=== PATIENT | male | born 1955 | race Caucasian/White ===

== ENCOUNTER 2022-02-26 07:29 | Outpatient (REF) | payer MEDICARE, MEDICAID, SELFPAY ==
[2022-02-26 07:58] LABS: MANUAL DIFF FLAG NO
[2022-02-26 08:13] LABS: Basophils Percent Auto 0.3 % (0-2); Eosinophils Absolute Auto 0.1 X10*3/uL (0.0-0.4); Eosinophils Percent Auto 1.5 % (0-4); Hematocrit 45.2 % (42.0-52.0); Hemoglobin 14.3 g/dl (14.0-18.0); Imm Gran Abs Auto 0.06 X10*3/uL (0.00-0.03); Imm Gran Pct Auto 0.7 % (0.0-0.4); Lymphocytes Absolute Auto 2.7 X10*3/uL (1.2-4.9); Mean Corpuscular HGB Conc 31.6 g/dl (31.0-36.0); Mean Corpuscular Hemoglobin 31.5 pg (27.0-33.0); Mean Corpuscular Volume 99.6 fL (80.0-98.0); Mean Platelet Volume 12.3 fL (9.4-12.4); Monocytes Absolute Auto 0.8 X10*3/uL (0.1-1.2); Monocytes Percent Auto 9.1 % (2-11); Neutrophils Percent Auto 57.4 % (45-73); Platelet Count 153 X10*3/uL (160-400); Red Blood Count 4.54 X10*6/uL (4.60-5.80); Red Cell Distribution Width 13.7 % (11.0-16.0); White Blood Count 8.7 X10*3/uL (4.8-10.8)
[2022-02-26 08:27] LABS: Estimated Average Glucose 186 mg/dL; Hemoglobin A1c % 8.1 %
[2022-02-26 08:39] LABS: Alanine Aminotransferase 34 U/L (0-40); Albumin Level 3.9 g/dL (3.5-5.0); Alkaline Phosphatase 64 U/L (39-117); Anion Gap 14 (12-20); Aspartate Amino Transferase 18 U/L (5-37); Bilirubin Total 0.3 mg/dL (0.0-1.0); Blood Urea Nitrogen 13 mg/dL (9-16); Calcium 9.1 mg/dL (8.4-10.2); Carbon Dioxide 28 mmol/L (22-29); Chloride 101 mmol/L (96-108); Cholesterol 172 mg/dL; Estimated Glomerular Filt Rate > 60; Glucose Fasting 192 mg/dL (60-99); HDL Cholesterol 30 mg/dL; LDL Cholesterol Calculated 115 mg/dl; Potassium 4.5 mmol/L (3.3-5.1); Sodium 138 mmol/L (135-145); Total Protein 7.1 g/dL (6.5-8.0); Triglycerides 137 mg/dL
[2022-02-26 09:01] LABS: Thyroid Stimulating Hormone 3.09 uIU/mL (0.32-4.0)
[2022-02-26 10:12] LABS: Creatinine Urine 82.82 mg/dL; Microalbum/Creatinine Ratio Ur 31.3 ug/mg cr
== END 2022-02-26 07:30 | disposition home or self-care (01) ==
LOC: HO.LAB 07:29
PROVIDERS: PCP Internal Medicine; Visit Provider Internal Medicine
DX: Z00.00 Encounter for general adult medical examination without abnormal findings (principal); E03.9 Hypothyroidism, unspecified; E11.9 Type 2 diabetes mellitus without complications
CPT/HCPCS: 36415; 80053; 80061; 82043; 83036; 84443; 85025

== ENCOUNTER 2024-01-01 11:36 | Outpatient (AMB) | payer MEDICARE, MEDICAID, SELFPAY ==
--- NOTE | 2024-01-01 11:36 | A.OFFPC_ITS ---
Vital Signs 01/01/24 11:37 Height 5 ft 6 in Weight 296 lb BMI 47.8 BP 136/76 Blood Pressure Location Lt brachial Position Sitting Pulse 92 Pulse Source Pulse Oximeter Pulse Oximetry (%) 95 Oxygen Delivery Method Room Air Intake Visit Reasons: medication follow up Intake Note: Patient is here to follow up on medication follow up Information Systems Security Specialist Required: No Allergies No Known Allergies [No Known Allergies*] Allergy (Verified 01/01/24 11:37) Medication List - Last Reconciled 01/04/24 by Chencho Cole MD aspirin (Adult Low Dose Aspirin) 81 mg PO DAILY blood sugar diagnostic use to test blood sugars three times a day blood sugar diagnostic (MultistatTouch Ultra Test strips) Test 3 times a day blood-glucose meter (Picuriouch Ultra2 Meter kit) test blood sugar three times a day diclofenac sodium 75 mg PO BID dicyclomine 20 mg PO QID 30 days fluoxetine 40 mg PO DAILY furosemide 20 mg PO DAILY glipizide ER 5 mg PO BID insulin glargine (Lantus U-100 Insulin) 90 units (0.9 mL) subcut .at bedtime insulin syringe-needle U-100 (BD Insulin Syringe Ultra-Fine) As directed lancets (Picuriouch Delica Plus Lancet) test three time a day lisinopril 10 mg PO DAILY metformin 1,000 mg PO BID pioglitazone 30 mg PO DAILY simvastatin 40 mg PO DAILY Ventolin HFA 90 mcg/actuation (albuterol sulfate) 2 puffs PO Q6H PRN NS Tobacco use date assessed: 01/01/24 Fall risk assessment: No Falls in past year Last assessed Fall Risk: 01/01/24 Dental Screening Dental Screen Date: 01/01/24 HPI medication follow up HPI Details DM HTN and hyperlip; compliant with meds; feels well [facility] Medical History (Updated 01/04/24 @ 09:01 by Chencho Cole MD) Morbid obesity Type 2 diabetes mellitus with morbid obesity Diabetes mellitus Surgical History History of nasal septoplasty Family History Father No problems noted. Mother Type 2 diabetes mellitus Maternal Grandmother Type 2 diabetes mellitus Social History Housing: Apartment Patient Tobacco Use Status: Current everyday Tobacco user Tobacco use type: Cigarette Cigarettes Per Day: 30 e-Cigarette/Vaping Use: Never Used Second Hand Smoke Exposure: No service: No Current occupational status: disabled Current occupational exposures/hazards: No Cognitive needs: No Hearing needs: No Vision needs: Yes Questionnaire PHQ-9 Over the last 2 weeks, how often have you been bothered by any of the following problems? 1. Little interest or pleasure in doing things: not at all 2. Feeling down, depressed, or hopeless: not at all 3. Trouble falling or staying asleep, or sleeping too much: not at all 4. Feeling tired or having little energy: not at all 5. Poor appetite or overeating: not at all 6. Feeling bad about yourself - or that you are a failure or have let yourself or your family down: not at all 7. Trouble concentrating on things, such as reading the newspaper or watching television: not at all 8. Moving or speaking so slowly that other people could have noticed. Or the opposite - being so fidgety or restless that you have been moving around a lot more than usual: not at all 9. Thoughts that you would be better off or of hurting yourself in some way: not at all Total score: 0 Depression Screening Interpretation: Negative Depression Screening Done: Yes 42117 - PHQ-9 Billing: Yes Source: Developed by Drs. Reji Carney, Chrystal Her, Steven Talamantes and colleagues, with an educational kj from [employer]. Thrive Questionnaire Date Thrive assessed: 01/01/24 I am a: Patient What is your living situation today?: I have a steady place to live Within the past 12 months, did the food you bought not last and you didn't have the money to get more?: Never true Within the past 12 months, did you worry whether your food would run out before you got money to buy more?: Never true Do you have trouble paying for medicines?: No Do you have trouble getting transportation to medical appointments?: No Do you have trouble paying your heating and electricity bill?: No Do you have trouble taking care of your child, family member or friend?: No Do you have trouble with day-to-day activities such as bathing, preparing meals, shopping, managing finances, etc.?: No Are you currently unemployed and looking for a job?: No Are you interested in more education?: No Please select the resources that you would like help with: None THRIVE Score: 0 AUDIT C Alcohol Use Questionnaire (AUDIT-C) 1. How often do you have a drink containing alcohol?: Never 3. How often do you have six or more drinks on one occasion?: Never Total Score: 0 Score Reviewed/Action Taken: Yes ASHLY-7 AMB Questionnaire ASHLY-7 Date ASHLY - 7 assessed: 01/01/24 Source: Developed by Drs. Reji Carney, Chrystal Her, Steven Talamantes and colleagues, with an educational kj from [employer]. Review of Systems Const Denies chills, Denies headache(s) and Denies weight loss ENT Denies headache(s) Card Denies chest pain, Denies syncope, Denies irregular heart rhythm and Denies dyspnea Resp Denies chest congestion, Denies cough and Denies dyspnea GI Denies abdominal pain, Denies change in stool character, Denies nausea and Denies vomiting Musc Denies deformity and Denies joint swelling Neuro Denies syncope and Denies headache(s) Physical exam (Primary Care) Vital Signs: Last Vital Signs Pulse 92 01/01/24 11:37 BP 136/76 01/01/24 11:37 Pulse Ox 95 01/01/24 11:37 Oxygen Delivery Method Room Air 01/01/24 11:37 BMI result Body Mass Index 47.8 Tobacco/Smoking Status: Tobacco use Status Tobacco use date assessed 01/01/24 01/01/24 11:42 Patient Tobacco Use Status Current everyday Tobacco 01/01/24 11:42 Tobacco use type Cigarette 01/01/24 11:42 e-Cigarette/Vaping Use Never Used 01/01/24 11:42 PHQ-9: PHQ-9 Score PHQ-9: Total score 0 01/01/24 11:50 Depression Screening Interpretation: Negative Thrive Assessment: Date of Thrive Assessment Date Thrive assessed 01/01/24 01/01/24 11:42 Const General: cooperative, comfortable, no acute distress and alert Neck Neck: Yes no lymphadenopathy Thyroid: Thyroid normal Resp Effort & Inspection: normal respiratory effort Auscultation: clear to auscultation bilaterally Percussion: percussion normal Cardio Jugular venous distension: no JVD Palpation: normal PMI Rate: regular rate Rhythm: regular rhythm Heart sounds: S1 normal heart sound present and S2 normal heart sound present GI Inspection: Yes normal to inspection Palpation (GI): No hepatosplenomegaly present Skin General skin exam: no rashes or lesions noted Extrem General: Yes no clubbing, cyanosis or edema Results AMB Hemoglobin A1c AMB Hemoglobin A1c 7.9 % Last Edit by DMITRY Smith on 01/01/24 11:48 Results Reviewed Results Reviewed: Laboratory Last Values Hgb A1c (Clinic) 7.9 % (4.0-6.0) H 01/01/24 11:46 Assessment and Plan Assessment & Plan (1) Type 2 diabetes mellitus with morbid obesity: Code(s): E11.69 - Type 2 diabetes mellitus with other specified complication; E66.01 - M orbid (severe) obesity due to excess calories Plan: stable; same rx; do labs (2) Hypertension: Code(s): I10 - Essential (primary) hypertension Plan: stable; same rx (3) Hyperlipidemia: Code(s): E78.5 - Hyperlipidemia, unspecified Plan: stable; same rx Orders: Orders AMB Hemoglobin A1c 01/01/24 E11.69 - Type 2 diabetes mellitus with other specified complication, E66.01 - Morbid (severe) obesity due to excess calories Thyroid Stimulating Hormone 01/01/24 E03.9 - Hypothyroidism, unspecified Lipid Panel 01/01/24 E78.5 - Hyperlipidemia, unspecified Microalbumin, Random (w Creat) 01/01/24 E11.69 - Type 2 diabetes mellitus with other specified complication, E66.01 - Morbid (severe) obesity due to excess calories Complete Blood Count Auto Diff 01/01/24 D64.9 - Anemia, unspecified Comprehensive [place]. Panel Fast 01/01/24 N28.9 - Disorder of kidney and ureter, unspecified Coding Level of Care Code Est Pt Level 4 (15412) Diagnoses Type 2 diabetes mellitus with morbid obesity E11.69; E66.01 Hypertension I10 Hyperlipidemia E78.5
[2024-01-01 11:37] VITALS: BP 136/76; PULSE 92; O2SAT 95; BMI 47.8
== END 2024-01-01 11:54 | disposition home or self-care (01) ==
PROVIDERS: PCP Internal Medicine; Visit Provider Internal Medicine
DX: E11.69 Type 2 diabetes mellitus with other specified complication (principal); E66.01 Morbid (severe) obesity due to excess calories; Z68.42 Body mass index [BMI] 45.0-49.9, adult
CPT/HCPCS: 83036; 99214

== ENCOUNTER 2025-04-05 13:29 | Outpatient (AMB) | payer MEDICARE, MEDICAID, OTHER, SELFPAY ==
--- NOTE | 2025-04-05 13:39 | A.OFFPC_ITS ---
Vital Signs 04/05/25 13:40 Height 5 ft 6 in Weight 279 lb 4 oz BMI 45.1 BP 130/80 Blood Pressure Location Lt brachial Position Sitting Pulse 88 Pulse Source Pulse Oximeter Temp 97.1 F Temp Source Temporal Artery Scan Pulse Oximetry (%) 98 Oxygen Delivery Method Room Air Intake Visit Reasons: JARAD from Dr. Cole/Deonna follow up Intake Note: Patient is here for JARAD from Dr Cole and DM f/u. Request cream for dry skin on legs. Healthcare Applications Analyst Required: Yes Healthcare Applications Analyst Language: Trolley Coach Driver Name: Camacho (spouse) Information Interpreted: non-clinical & clinical (pt decline vp biology service, prefer spouse to translate) Street Car Mechanic: Present Accompanied by: Spouse Allergies No Known Allergies [No Known Allergies*] Allergy (Verified 04/05/25 14:01) Medication List - Last Reconciled 04/05/25 by Aundrea Guzmán PA-C aspirin (Adult Low Dose Aspirin) 81 mg PO DAILY blood sugar diagnostic use to test blood sugars three times a day blood sugar diagnostic (OneTouch Ultra Test strips) Test 3 times a day blood-glucose meter (JAZZ TECHNOLOGIESTouch Ultra2 Meter kit) test blood sugar three times a day diclofenac sodium 75 mg PO BID dicyclomine 20 mg PO QID 30 days fluoxetine 40 mg PO DAILY furosemide 20 mg PO DAILY glipizide ER 5 mg PO BID insulin glargine (Basaglar KwikPen U-100 Insulin) 20 units (0.2 mL) subcut QAM insulin syringe-needle U-100 (BD Insulin Syringe Ultra-Fine) As directed lancets (OneTouch Delica Plus Lancet) test three time a day lisinopril 10 mg PO DAILY metformin 1,000 mg PO BID pioglitazone 30 mg PO DAILY simvastatin 40 mg PO DAILY Ventolin HFA 90 mcg/actuation (albuterol sulfate) 2 puffs PO Q6H PRN NS Tobacco use date assessed: 04/05/25 Fall risk assessment: No Falls in past year Last assessed Fall Risk: 04/05/25 Dental Screening Dental Screen Date: 04/05/25 Did you have a dental visit in the last 12 months?: No Did you have a dental problem in the last 6 months where you did not have access to dental care?: No Was dental information given to patient?: No HPI JARAD from Dr. Cole/3M follow up HPI Details 69 year old male with past history of di abetes mellitus, hyperlipidemia, hypertension and morbid obesity last seen 12/[address] Cole coming in for JARAD.? Presenting with transfer of care due to previously established conditions including type 2 diabetes mellitus, depression, anxiety, and asthma. He has a long history of smoking one pack per day since age 16 with no interest in cessation. Depression and anxiety are exacerbated by recent housing loss, living with extended family, which increases stress. The patient actively utilizes fluoxetine for symptom control but feels inadequate relief. [facility] Medical History Morbid obesity Type 2 diabetes mellitus with morbid obesity Diabetes mellitus Surgical History History of nasal septoplasty Family History Father No problems noted. Mother Type 2 diabetes mellitus Maternal Grandmother Type 2 diabetes mellitus Social History Housing: Apartment Patient Tobacco Use Status: Current everyday Tobacco user Tobacco use type: Cigarette Cigarette Packs Per Day: 1 Cigarettes Per Day: 20 e-Cigarette/Vaping Use: Never Used Second Hand Smoke Exposure: Yes service: No Current occupational status: disabled Current occupational exposures/hazards: No Cognitive needs: No Hearing needs: No Vision needs: Yes Questionnaire PHQ-9 Over the last 2 weeks, how often have you been bothered by any of the following problems? 1. Little interest or pleasure in doing things: nearly every day 2. Feeling down, depressed, or hopeless: nearly every day 3. Trouble falling or staying asleep, or sleeping too much: nearly every day 4. Feeling tired or having little energy: nearly every day 5. Poor appetite or overeating: not at all 6. Feeling bad about yourself - or that you are a failure or have let yourself or your family down: not at all 7. Trouble concentrating on things, such as reading the newspaper or watching television: several days 8. Moving or speaking so slowly that other people could have noticed. Or the opposite - being so fidgety or restless that you have been moving around a lot more than usual: several days 9. Thoughts that you would be better off or of hurting yourself in some way: not at all Total score: 14 Depression Screening Interpretation: Positive (declining further tx ) Depression Screening Follow-up: Existing condition and In treatment Depression Screening Done: Yes Source: Developed by Drs. Reji Carney, Chrystal Her, Steven Talamantes and colleagues, with an educational kj from [employer]. Thrive Questionnaire Date Thrive assessed: 04/05/25 I am a: Patient What is your living situation today?: I have a steady place to live Within the past 12 months, did the food you bought not last and you didn't have the money to get more?: Never true Within the past 12 months, did you worry whether your food would run out before you got money to buy more?: Never true Do you have trouble paying for medicines?: No Do you have trouble getting transportation to medical appointments?: No Do you have trouble paying your heating and electricity bill?: No Do you have trouble taking care of your child, family member or friend?: No Do you have trouble with day-to-day activities such as bathing, preparing meals, shopping, managing finances, etc.?: No Are you currently unemployed and looking for a job?: Yes Are you interested in more education?: No Please select the resources that you would like help with: None Currently or been in a relationship where the following occur: No concerns reported THRIVE Score: 0 AUDIT C Alcohol Use Questionnaire (AUDIT-C) 1. How often do you have a drink containing alcohol?: Never Total Score: 0 ASHLY-7 AMB Questionnaire ASHLY-7 Date ASHLY - 7 assessed: 04/05/25 Feeling nervous, anxious, or on edge: 1 = Several days Not being able to stop or control worryin = Several days Worrying too much about different things: 1 = Several days Trouble relaxin = Several days Being so restless that it is hard to sit still: 1 = Several days Becoming easily annoyed or irritable: 2 = More than half the days Feeling afraid as if something awful might happen: 0 = Not at all Total ASHLY-7 score (0-4 normal; 5-9 mild; 10-14 moderate; 15-21 severe): 7 Source: Developed by Drs. Reji Carney, Chrystal Her, Steven Talamantes and colleagues, with an educational kj from [employer]. ASHLY-7 Assessment Billing ASHLY-7 Assessment Tool: ASHLY-7 Assessment 71122 Review of Systems Const Denies body aches, Denies chills, Denies fever(s), Denies headache(s) and Denies poor appetite Eyes Reports no additional complaints ENT Denies dysphagia, Denies dizziness, Denies headache(s) and Denies odynophagia Card Denies chest pain, Denies syncope, Denies edema, Denies irregular heart rhythm, Denies lightheadedness and Denies dyspnea Resp Denies dyspnea GI Denies abdominal pain, Denies constipation, Denies dysphagia, Denies diarrhea, Denies nausea, Denies odynophagia and Denies vomiting Reports no additional complaints Musc Reports no additional complaints and Denies abnormal gait Skin/Breast Reports system reviewed and no additional complaints, except as documented Neuro Denies abnormal gait, Denies dizziness, Denies syncope and Denies headache(s) Psych Reports no additional complaints Physical exam (Primary Care) Vital Signs: Last Vital Signs Temp 97.1 F 04/05/25 13:40 Pulse 88 04/05/25 13:40 BP 130/80 04/05/25 13:40 Pulse Ox 98 04/05/25 13:40 Oxygen Delivery Method Room Air 04/05/25 13:40 BMI result Body Mass Index 45.1 Tobacco/Smoking Status: Tobacco use Status Tobacco use date assessed 04/05/25 04/05/25 13:46 Patient Tobacco Use Status Current everyday Tobacco 04/05/25 13:52 Tobacco use type Cigarette 04/05/25 13:52 e-Cigarette/Vaping Use Never Used 04/05/25 13:52 PHQ-9: PHQ-9 Score PHQ-9: Total score 14 04/05/25 13:46 Depression Screening Interpretation: Positive (declining further tx ) Depression Screening Follow-up: Existing condition and In treatment Thrive Assessment: Date of Thrive Assessment Date Thrive assessed 04/05/25 04/05/25 13:46 Currently or been in a relationship where the following occur: No concerns reported Const General: cooperative, healthy appearing, comfortable and no acute distress Orientation/consciousness: patient oriented x3 HENMT Head: Yes normocephalic Ears: hearing grossly normal bilaterally General nose exam: Normal external nose present Eyes General: appearance normal, both eyes and all related structures Conjunctivae: conjunctivae normal Neck Neck: Yes full ROM and Yes no lymphadenopathy Resp Effort & Inspection: normal respiratory effort Auscultation: clear to auscultation bilaterally, no crackles, no rales, no rhonchi and no wheezes Cardio Rate: regular rate Rhythm: regular rhythm Skin General skin exam: no rashes or lesions noted Neuro General: patient oriented x3 Gait exam (Neuro): Normal gait present Extrem General: Yes normal to inspection, Yes full ROM and No edema Psych Affect: normal affect Attitude: cooperative Insight: Good insight present (Psych) Judgement: Good judgement present (Psych) Results AMB Hemoglobin A1c AMB Hemoglobin A1c 6.7 % Last Edit by DMITRY Casillas on 04/05/25 13:55 Results Reviewed Results Reviewed: Laboratory Last Values Hgb A1c (Clinic) 6.7 % (4.0-6.0) H 04/05/25 13:39 Coding Level of Care Code Est Pt Level 4 (06986) Diagnoses Mixed hyperlipidemia E78.2 Hyperlipidemia type: mixed hyperlipidemia Primary hypertension I10 Hypertension type: primary hypertension Morbid obesity E66.01 Type 2 diabetes mellitus with morbid obesity E11.69; E66.01 Depression F32.A Anxiety F41.9 Asthma J45.909 Dry skin dermatitis L85.3 Tobacco use disorder F17.200 Colon cancer screening declined Z53.20 Additional Codes ASHLY-7 Assessment Billing - ASHLY-7 Assessment Tool: ASHLY-7 Assessment 26680 ([id number]) Assessment & Plan Assessment & Plan (1) Hyperlipidemia: Code(s): E78.5 - Hyperlipidemia, unspecified Category: Medical Qualifiers: Hyperlipidemia type: mixed hyperlipidemia Qualified Code(s): E78.2 - Mixed hyperlipidemia Plan: Avoid foods that are high in cholesterol such as red meat, fried foods, eggs and baked goods. Triglyceride goal of less than 150 and LDL goal of less than 100. Continue on simvastatin 40 (2) Hypertension: Code(s): I10 - Essential (primary) hypertension Category: Medical Qualifiers: Hypertension type: primary hypertension Qualified Code(s): I10 - Essential (primary) hypertension Plan: Continue on current blood pressure medication. Avoid salt intake and encourage healthy diet and regular exercise. (3) Morbid obesity: Code(s): E66.01 - Morbid (severe) obesity due to excess calories Category: Medical Plan: Healthy diet and regular exercise is encouraged. (4) Type 2 diabetes mellitus with morbid obesity: Code(s): E11.69 - Type 2 diabetes mellitus with other specified complication; E66.01 - Morbid (severe) obesity due to excess calories Category: Medical Plan: Decrease the amount of carbohydrates such as pasta, bread, rice, and potatoes and limit the amount of sweets. Although fruits are generally healthy they should be eaten in moderation as they are still high in sugar. Hemoglobin A1c goal of less than 7%. A1c 6.7% in the clinic today. Patient does monitor the blood sugars at home and states he does have very few values below 100 which typically resolve with a snack. He is currently on pioglitazone, metformin, glipizide and insulin glargine. Referral was placed to Podiatry and optometry today. (5) Depression: Code(s): F32.A - Depression, unspecified Category: Medical Plan: Patient testing positive for PHQ-9 and ashly 7 today. Does endorse increased stress but declines additional treatment beyond his fluoxetine and declines counseling at this time. (6) Anxiety: Code(s): F41.9 - Anxiety disorder, unspecified Category: Medical Plan: See above (7) Asthma: Code(s): J45.909 - Unspecified asthma, uncomplicated Category: Medical Plan: Asthma currently controlled on present medications. Continue on albuterol as needed. Avoid triggers such as allergies. (8) Dry skin dermatitis: Code(s): L85.3 - Xerosis cutis Category: Medical Plan: Prescription for Amlactin sent to pharmacy. (9) Tobacco use disorder: Code(s): F17.200 - Nicotine dependence, unspecified, uncomplicated Category: Medical Plan: Smoking cigarettes and the use of tobacco can be harmful. We discussed the importance of stopping and options to aid in smoking cessation. Declining medical management or nicotine replacement therapy at this time. Declining lung cancer screening. (10) Colon cancer screening declined: Code(s): Z53.20 - Procedure and treatment not carried out because of patient's decision for unspecified reasons Category: Medical Plan: Patient is declining colon cancer screening via colonoscopy or Cologuard testing. He understands the risks of declining these procedures. Plan Plan to obtain blood work and follow up in 3 months. This note was constructed using voice recognition software. While every effort has been made to ensure accuracy and assistant professor in family studies, still areas may have been included sometimes these areas may affect the content or meeting of the given symptoms. Total time spent caring for the patient today was 30 minutes. This includes time spent before the visit reviewing the chart, time spent during the visit, and time spent after the visit and documentation. Patient was informed and verbally consented to the use of an ambient scribe for clinic note documentation during this visit. Orders: Orders Comprehensive Met. Panel Today E11.69 - Type 2 diabetes mellitus with other specified complication, E66.01 - Morbid (severe) obesity due to excess calories, Z00.00 - Encounter for general adult medical examination without abnormal findings Complete Blood Count Auto Diff Today E11.69 - Type 2 diabetes mellitus with other specified complication, E66.01 - Morbid (severe) obesity due to excess calories, Z00.00 - Encounter for general adult medical examination without abnormal findings TSH reflex Free T4 Today Z00.00 - Encounter for general adult medical examination without abnormal findings Free T4 (Free Thyroxine) Today Z00.00 - Encounter for general adult medical examination without abnormal findings Vitamin B12 and Folate Today Z00.00 - Encounter for general adult medical examination without abnormal findings Vitamin D 25-OH Total Today Z00.00 - Encounter for general adult medical examination without abnormal findings Microalbumin, Random (w Creat) Today E11.9 - Type 2 diabetes mellitus without complications PSA, Ultra Sensitive Today Z00.00 - Encounter for general adult medical examination without abnormal findings AMB Hemoglobin A1c Today E11.69 - Type 2 diabetes mellitus with other specified complication, E11.9 - Type 2 diabetes mellitus without complications, E66.01 - Morbid (severe) obesity due to excess calories Lipid Panel Today E78.5 - Hyperlipidemia, unspecified Referrals Podiatry Referral E11.69 - Type 2 diabetes mellitus with other specified complication, E66.01 - Morbid (severe) obesity due to excess calories Optometry Referral E11.69 - Type 2 diabetes mellitus with other specified complication, E66.01 - Morbid (severe) obesity due to excess calories Medications: New ammonium lactate 12% (AmLactin) 1 appl topical DAILY 400 grams 1RF Refilled insulin glargine (Basaglar KwikPen U-100 Insulin) 20 units (0.2 mL) subcut QAM 15 mL 3RF lancets (JAZZ TECHNOLOGIESTouch Delica Plus Lancet) test three time a day 100 ea 8RF Ventolin HFA 90 mcg/actuation (albuterol sulfate) 2 puffs PO Q6H PRN 18 grams 2RF for bronchospasm NS blood sugar diagnostic ([employer] Ultra Test strips) Test 3 times a day 100 ea 1RF
[2025-04-05 13:40] VITALS: BP 130/80; PULSE 88; TEMP 36.2; O2SAT 98; BMI 45.1
--- OUTSIDE RECORDS SUMMARY | 2025-04-05 14:46 | XMS_ITS | Clinical Summary ---
Author Organization [facility] ity Address [address] [place] [address] Care Team Providers Care Loss Control Representative Name Role Phone Unavailable Primary Care Provider Unavailabl e Social History Tobacco Use Types Packs/Day Years Used Date Smoking Tobacco: Never Assessed Sex and Gender Information Value Date Recorded Sex Assigned at Not on file Legal Sex Male 12:21 AM EST Gender Identity Not on file Sexual Orientation Not on file Plan of Treatment Health Maintenance Due Date Last Done Comments DTaP,Tdap,and Td Vaccines (1 - Tdap) 1976 Pneumococcal Vaccine: 50+ Ye ars (1 of 1 - PCV) 2007 Zoster Vaccines (1 of 2) 2007 COVID-19 Vaccine ( - 2023-2 5 season) 2024 Influenza Vaccine (Season Ended) 2025 RSV Immunization Adult Patie nts (1 - 1-dose 75+ series) 2032 HIB Vaccines Aged Out No longer eligi ble based on patient's age to complete this topic HPV Vaccines Aged Out No longer eligi ble based on patient's age to complete this topic Hepatitis A Vaccines Aged Out No long er eligible based on patient's age to complete this topic Hepatitis B Vaccines Aged Out No long er eligible based on patient's age to complete this topic IPV Vaccines Aged Out No longer eligi ble based on patient's age to complete this topic MMR Vaccines Aged Out No longer eligi ble based on patient's age to complete this topic Meningococcal ACWY Vaccine Aged Out N o longer eligible based on patient's age to complete this topic Meningococcal B Vaccine Aged Out No l onger eligible based on patient's age to complete this topic RSV Immunization Patients Un kaity 20 months Aged Out No longer eligible b ased on patient's age to complete this topic Varicella Vaccines Aged Out No longer eligible based on patient's age to complete this topic
== END 2025-04-05 14:20 | disposition home or self-care (01) ==
LOC: HO.HMCH 13:30
DX: E11.69 Type 2 diabetes mellitus with other specified complication (principal); E11.9 Type 2 diabetes mellitus without complications; E66.01 Morbid (severe) obesity due to excess calories; Z68.42 Body mass index [BMI] 45.0-49.9, adult; I10 Essential (primary) hypertension; E78.2 Mixed hyperlipidemia; F32.A Depression, unspecified; F41.9 Anxiety disorder, unspecified; J45.909 Unspecified asthma, uncomplicated; L85.3 Xerosis cutis; F17.200 Nicotine dependence, unspecified, uncomplicated; Z53.20 Procedure and treatment not carried out because of patient's decision for unspecified reasons

== ENCOUNTER → 2025-04-05 13:29 | Outpatient (BNVA) | payer MEDICARE, MEDICAID, OTHER, SELFPAY | DX: E78.2 Mixed hyperlipidemia (principal); I10 Essential (primary) hypertension; E11.69 Type 2 diabetes mellitus with other specified complication; F32.A Depression, unspecified; F41.9 Anxiety disorder, unspecified; J45.909 Unspecified asthma, uncomplicated; F17.200 Nicotine dependence, unspecified, uncomplicated; E66.01 Morbid (severe) obesity due to excess calories; Z68.42 Body mass index [BMI] 45.0-49.9, adult; Z71.3 Dietary counseling and surveillance; Z71.6 Tobacco abuse counseling | CPT/HCPCS: 83036; 96127; 99212 ==

== ENCOUNTER 2025-10-11 09:44 | Outpatient (AMB) | payer MEDICARE, MEDICAID, SELFPAY ==
--- NOTE | 2025-10-11 09:57 | A.OFFPC_ITS ---
Vital Signs 10/11/25 09:59 Height 5 ft 6 in Weight 289 lb 2 oz BMI 46.7 BP 130/70 Blood Pressure Location Lt brachial Position Sitting Pulse 81 Pulse Source Pulse Oximeter Temp 97.3 F Temp Source Temporal Artery Scan Pulse Oximetry (%) 98 Oxygen Delivery Method Room Air Intake Visit Reasons: follow up Intake Note: Patient is here to follow up on DM. 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 Accompanied by: Spouse Allergies No Known Allergies (No Known Allergies*) Allergy (Verified 10/11/25 10:07) Medication List - Last Reconciled 10/11/25 by Aundrea Guzmán PA-C ammonium lactate 12% (AmLactin) 1 appl topical DAILY aspirin (Adult Low Dose Aspirin) 81 mg PO DAILY blood sugar diagnostic use to test blood sugars three times a day blood sugar diagnostic ([employer] Ultra Test strips) Test 3 times a day blood-glucose meter ([employer] Ultra2 Meter kit) test blood sugar three times a day diclofenac sodium 75 mg PO BID dicyclomine 20 mg PO QID 30 days fluoxetine 40 mg PO DAILY furosemide 20 mg PO DAILY glipizide ER 5 mg PO BID insulin glargine (Basaglar KwikPen U-100 Insulin) 20 units (0.2 mL) subcut QAM insulin syringe-needle U-100 As directed lancets ([employer] Delica Plus Lancet) test three time a day lisinopril 10 mg PO DAILY metformin 1,000 mg PO BID pioglitazone 30 mg PO DAILY simvastatin 40 mg PO DAILY Ventolin HFA 90 mcg/actuation (albuterol sulfate) 2 puffs PO Q6H PRN NS Tobacco use date assessed: 10/11/25 Fall risk assessment: No Falls in past year Last assessed Fall Risk: 10/11/25 Dental Screening Dental Screen Date: 04/05/25 HPI follow up HPI Details 70 year old male with past history of di abetes mellitus, hyperlipidemia, hypertension and morbid obesity last seen 03/2025 coming in for follow up. Presenting for management of chronic conditions and a new cough. He reports significant stress due to losing his previous home and moving in with his daughter, which has led to discomfort and lifestyle changes. Regarding his diabetes, his last HbA1c was 6.7, but it has recently increased to 7.4. He attributes this to increased snacking on sweets and candies due to stress and inactivity, as he primarily stays in his room. The patient has developed a cough with phlegm that started over the past week and seems to be worsening. This tends to happen when it gets cold, and he also experiences nasal discharge. He continues to smoke cigarettes, which he states is exacerbated by his current stress, and is not currently interested in quitting. [facility] Medical History Morbid obesity Type 2 diabetes mellitus with morbid obesity Surgical History History of nasal septoplasty Family History Father No problems noted. Mother Type 2 diabetes mellitus Maternal Grandmother Type 2 diabetes mellitus Social History Housing: Apartment Alcohol intake: current Alcohol intake frequency: does not drink Patient Tobacco Use Status: Current everyday Tobacco user Tobacco use type: Cigarette Cigarette Packs Per Day: 1.5 Cigarettes Per Day: 30 e-Cigarette/Vaping Use: Never Used Second Hand Smoke Exposure: Yes service: No Current occupational status: disabled Current occupational exposures/hazards: No Cognitive needs: No Hearing needs: No Vision needs: Yes Questionnaire Thrive Questionnaire Date Thrive assessed: 04/05/25 ASHLY-7 AMB Questionnaire ASHLY-7 Date ASHLY - 7 assessed: 04/05/25 Source: Developed by Drs. Reji Carney, Chrystal Her, Steven Talamantes and colleagues, with an educational kj from [employer]. Review of Systems Const Denies body aches, Denies chills, Denies fever(s), Denies headache(s) and Denies poor appetite Eyes Reports no additional complaints ENT Denies dizziness and Denies headache(s) Card Denies chest pain, Denies edema, Denies lightheadedness and Denies dyspnea Resp Reports cough, Denies hemoptysis, Denies pain with cough and Denies dyspnea GI Denies abdominal pain, Denies constipation, Denies diarrhea, Denies nausea and Denies vomiting Reports no additional complaints Musc Reports no additional complaints and Denies abnormal gait Skin/Breast Reports system reviewed and no additional complaints, except as documented Neuro Denies abnormal gait, Denies dizziness and Denies headache(s) Psych Reports no additional complaints Physical exam (Primary Care) Vital Signs: Last Vital Signs Temp 97.3 F 10/11/25 09:59 Pulse 81 10/11/25 09:59 BP 130/70 10/11/25 09:59 Pulse Ox 98 10/11/25 09:59 Oxygen Delivery Method Room Air 10/11/25 09:59 BMI result Body Mass Index 46.7 Tobacco/Smoking Status: Tobacco use Status Tobacco use date assessed 10/11/25 10/11/25 10:06 Patient Tobacco Use Status Current everyday Tobacco 10/11/25 10:06 Tobacco use type Cigarette 10/11/25 10:06 e-Cigarette/Vaping Use Never Used 10/11/25 10:06 Thrive Assessment: Date of Thrive Assessment Date Thrive assessed 04/05/25 10/11/25 09:57 Const General: cooperative, healthy appearing, comfortable and no acute distress Orientation/consciousness: patient oriented x3 HENMT Head: Yes normocephalic Ears: hearing grossly normal bilaterally General nose exam: Normal external nose present Eyes General: appearance normal, both eyes and all related structures Conjunctivae: conjunctivae normal Neck Neck: Yes full ROM and Yes no lymphadenopathy Resp Effort & Inspection: normal respiratory effort Auscultation: clear to auscultation bilaterally, no crackles, no rales, no rhonchi and no wheezes Cardio Rate: regular rate Rhythm: regular rhythm Skin General skin exam: no rashes or lesions noted Neuro General: patient oriented x3 Gait exam (Neuro): Normal gait present Extrem General: Yes normal to inspection, Yes full ROM and No edema Psych Affect: normal affect Attitude: cooperative Insight: Good insight present (Psych) Judgement: Good judgement present (Psych) Results AMB Hemoglobin A1c AMB Hemoglobin A1c 7.4 % Last Edit by DMITRY Casillas on 10/11/25 10:11 Results Reviewed Results Reviewed: Laboratory Last Values Hgb A1c (Clinic) 7.4 % (4.0-6.0) H 10/11/25 09:58 Coding Level of Care Code Est Pt Level 3 (26669) Diagnoses Mixed hyperlipidemia E78.2 Hyperlipidemia type: mixed hyperlipidemia Primary hypertension I10 Hypertension type: primary hypertension Morbid obesity E66.01 Type 2 diabetes mellitus with morbid obesity E11.69; E66.01 Depression F32.A Asthma J45.909 Tobacco use disorder F17.200 Cough R05.9 Assessment & Plan Assessment & Plan (1) Hyperlipidemia: Code(s): E78.5 - Hyperlipidemia, unspecified Category: Medical Qualifiers: Hyperlipidemia type: mixed hyperlipidemia Qualified Code(s): E78.2 - Mixed hyperlipidemia Plan: Avoid foods that are high in cholesterol such as red meat, fried foods, eggs and baked goods. Triglyceride goal of less than 150 and LDL goal of less than 100. Continue on simvastatin 40. Reminded about blood work. (2) Hypertension: Code(s): I10 - Essential (primary) hypertension Category: Medical Qualifiers: Hypertension type: primary hypertension Qualified Code(s): I10 - Essential (primary) hypertension Plan: Continue on current blood pressure medication. Avoid salt intake and encourage healthy diet and regular exercise. (3) Morbid obesity: Code(s): E66.01 - Morbid (severe) obesity due to excess calories Category: Medical Plan: Healthy diet and regular exercise is encouraged. (4) Type 2 diabetes mellitus with morbid obesity: Code(s): E11.69 - Type 2 diabetes mellitus with other specified complication; E66.01 - Morbid (severe) obesity due to excess calories Category: Medical Plan: Decrease the amount of carbohydrates such as pasta, bread, rice, and potatoes and limit the amount of sweets. Although fruits are generally healthy they should be eaten in moderation as they are still high in sugar. Hemoglobin A1c goal of less than 7%. A1c in the office today The patient's HbA1c has increased to 7.4 from 6.7, which is attributed to stress-related dietary changes, including increased consumption of sweets. The plan is to address diet by cutting back on snacking and sweets, with no current changes to his medication, pioglitazone. Medication adjustments will be considered if his blood sugar remains high at the next visit. A follow-up is scheduled in three months to recheck blood sugars. Declining medication change at this time. (5) Depression: Code(s): F32.A - Depression, unspecified Category: Medical Plan: Feels his symptoms are well managed on the Fluoxetine at this time. (6) Asthma: Code(s): J45.909 - Unspecified asthma, uncomplicated Category: Medical Plan: Asthma currently controlled on present medications. Continue on albuterol as needed. Avoid triggers such as allergies. (7) Tobacco use disorder: Code(s): F17.200 - Nicotine dependence, unspecified, uncomplicated Category: Medical Plan: Smoking cigarettes and the use of tobacco can be harmful. We discussed the importance of stopping and options to aid in smoking cessation. Declining medical management or nicotine replacement therapy at this time. Declining lung cancer screening. (8) Cough: Code(s): R05.9 - Cough, unspecified Category: Medical Plan: The patient reports a cough with phlegm. To manage symptoms and investigate the cause, Mucinex will be prescribed to be taken up to twice daily. A refill for his inhaler will also be sent. A chest x-ray and a pulmonary function test have been ordered to evaluate for potential COPD. Plan Reminded patient about blood work! This note was constructed using voice recognition software. While every effort has been made to ensure accuracy and correctional security officer, still areas may have been included sometimes these areas may affect the content or meeting of the given symptoms. Total time spent caring for the patient today was 30 minutes. This includes time spent before the visit reviewing the chart, time spent during the visit, and time spent after the visit and documentation. Patient was informed and verbally consented to the use of an ambient scribe for clinic note documentation during this visit. Orders: Orders PFT pulmonary function test Today R05.9 - Cough, unspecified AMB Hemoglobin A1c Today E11.69 - Type 2 diabetes mellitus with other specified complication, E66.01 - Morbid (severe) obesity due to excess calories XR chest 2V Today R05.9 - Cough, unspecified Medications: New guaifenesin ER (Mucinex) 600 mg PO Q12H PRN 30 tabs 0RF congestion Refilled Ventolin HFA 90 mcg/actuation (albuterol sulfate) 2 puffs PO Q6H PRN 18 grams 2RF for bronchospasm NS
[2025-10-11 09:59] VITALS: BP 130/70; PULSE 81; TEMP 36.3; O2SAT 98; BMI 46.7
--- OUTSIDE RECORDS SUMMARY | 2025-10-11 11:04 | XMS_ITS | Clinical Summary ---
Author Organization [facility] Address [address] [place] [address] Phone Care Team Providers Care Employment Coordinator Name Role Phone Aundrea Guzmán Primary Care Provider [phone] Social History Tobacco Use Types Packs/Day Years Used Date Smoking Tobacco: Never Assessed Sex and Gender Information Value Date Recorded Sex Assigned at Not on file Legal Sex Male 12:21 AM EST Gender Identity Not on file Sexual Orientation Not on file Plan of Treatment Health Maintenance Due Date Last Done Comments Colorectal Cancer Screening: Colonoscopy 1957 DTaP,Tdap,and Td Vaccines (1 - Tdap) 1976 Pneumococcal Vaccine: 50+ Ye ars (1 of 2 - PCV) 1976 Zoster Vaccines (1 of 2) 2007 Depression Screening 11/30/2024 Abdominal Aortic Aneurysm (A AA) Screen 04/11/2025 Cholesterol Screening (Lipid Panel) 04/11/2025 Falls Risk Assessment 04/11/2025 Hepatitis C Screening 04/11/2025 Medicare Annual Wellness Visit 04/11/2025 Social Influencers of Health Screening 04/11/2025 COVID-19 Vaccine (1 - 2024-2 6 season) 2025 Influenza Vaccine (#1) 2025 RSV Immunization Adult Patie nts (1 [...] on patient's age to complete this topic Insurance MEDICARE MEDICAID - [place] Care Teams Employment Coordinator Relationship Specialty Start Date End Date Aundrea Guzmán PA [address] [place] [address] PCP - General 04/11/25
== END 2025-10-11 10:26 | disposition home or self-care (01) ==
LOC: HO.HMCH 09:44
DX: E11.69 Type 2 diabetes mellitus with other specified complication (principal); E78.2 Mixed hyperlipidemia; Z68.42 Body mass index [BMI] 45.0-49.9, adult; E66.01 Morbid (severe) obesity due to excess calories; I10 Essential (primary) hypertension; F32.A Depression, unspecified; J45.909 Unspecified asthma, uncomplicated; F17.200 Nicotine dependence, unspecified, uncomplicated; R05.9 Cough, unspecified

== ENCOUNTER → 2025-10-11 09:44 | Outpatient (BNVA) | payer OTHER, SELFPAY | DX: I10 Essential (primary) hypertension (principal); E78.2 Mixed hyperlipidemia; E11.69 Type 2 diabetes mellitus with other specified complication; F32.A Depression, unspecified; J45.909 Unspecified asthma, uncomplicated; R05.9 Cough, unspecified; E66.01 Morbid (severe) obesity due to excess calories; F17.210 Nicotine dependence, cigarettes, uncomplicated; Z68.42 Body mass index [BMI] 45.0-49.9, adult | CPT/HCPCS: 83036; 99212 ==